=== PATIENT | male | born 1975 | race Asian ===

== ENCOUNTER 2024-10-07 15:14 | Emergency (ER) | payer BC ==
[2024-10-07] MEDS ORDERED: Ketorolac Tromethamine 30 MG (1 mL) VIAL ONE (18:24)
[2024-10-07] MEDS ORDERED: Dexamethasone 20 MG/5 ML VIAL ONE (18:24)
[2024-10-07 19:27] LABS: ALT (SGPT) 25 U/L (8-55); AST (SGOT) 19 U/L (5-34); Albumin 3.9 g/dL (3.5-5.0); Alkaline Phosphatase 68 U/L (40-110); Anion Gap 11 mmol/L (10-20); BUN (Urea Nitrogen) 10 mg/dL (8.9-20.6); Bilirubin, Total 0.4 mg/dL (0.2-1.2); Calc. Creatinine Clearance 0 mL/min (70-130); Calcium 9.6 mg/dL (7.8-10.44); Carbon Dioxide 26 mmol/L (22-29); Chloride 106 mmol/L (98-107); Estimated GFR 99; Globulin 3.6 g/dL (2.4-3.5); Glucose 119 mg/dL (70-105); Potassium 4.1 mmol/L (3.5-5.1); Protein, Total 7.5 g/dL (6.0-8.3); Sodium 139 mmol/L (136-145)
[2024-10-07 19:39] LABS: #Basophils 0.07 10x3/uL (0.0-0.2); #Eosinophils 0.19 10x3/uL (0.0-0.5); #Neutrophils 5.15 10x3/uL (1.5-8.4); %Basophils 0.9 % (0.0-2.0); %Eosinophils 2.4 % (0.0-6.0); %Lymphocytes 22.6 % (18.0-47.0); %Monocytes 9.9 % (0.0-10.0); Hematocrit 41.6 % (38.8-50.0); Hemoglobin 13.8 g/dL (13.5-17.5); Mean Corpuscular HGB CONC 33.2 g/dL (32.0-36.0); Mean Corpuscular Hemoglobin 28.8 pg (27.0-33.0); Mean Corpuscular Volume 86.7 fL (81.2-95.1); Platelet Count 312 10x3/uL (150-450); RBC Distribution Width 13.6 % (11.5-14.5); White Blood Cell (WBC) Count 8.1 10x3/uL (3.5-10.5)
== END 2024-10-07 21:10 | disposition home or self-care (01) ==
LOC: CSHERS 15:14
DX: R59.0 Localized enlarged lymph nodes (principal); B34.9 Viral infection, unspecified; H65.93 Unspecified nonsuppurative otitis media, bilateral; H73.93 Unspecified disorder of tympanic membrane, bilateral
CPT/HCPCS: 36415; 70491; 80053; 85025; 87428; 96374; J1100; J1885